=== PATIENT | female | born 2005 | race Caucasian/White ===

== ENCOUNTER 2025-03-17 19:27 | Emergency (ER) | payer MEDICAID ==
[~2025-03-17] VITALS: Ht 154.9 cm; Wt 54.4 kg
[2025-03-17 19:50] VITALS: O2SAT 99
[2025-03-17 19:57] VITALS: BP 120/78; PULSE 74; RESP 16; TEMP 36.8; O2SAT 99
[2025-03-17 20:23] LABS: CLARITY URINE CLEAR (CLEAR); COLOR URINE DARK YELLOW (YELLOW); GLUCOSE URINE NEGATIVE (NEGATIVE); KETONES URINE TRACE (NEGATIVE); LEUKOCYTE ESTERASE URINE 2+ (NEGATIVE); NITRITE URINE NEGATIVE (NEGATIVE); OCCULT BLOOD URINE 1+ (NEGATIVE); PH URINE 6.5 (4.5-8.0); PROTEIN URINE NEGATIVE (NEGATIVE); SPECIFIC GRAVITY URINE 1.019 (1.005-1.030); UROBILINOGEN URINE 1.0 E.U./dL (0.2-1.0)
[2025-03-17 20:55] LABS: SQUAMOUS EPITHELIAL CELL URINE 2+ /lpf (RARE/1+)
[2025-03-17 20:56] LABS: WBC URINE 25-50 /hpf (0-2)
[2025-03-17 20:57] LABS: BACTERIA URINE 2+
[2025-03-17] MEDS ORDERED: CEPH500T MT (22:12)
[2025-03-17] MEDS: CEFTRIAXONE SODIUM 1G VIAL IM ONE (22:24)
== END 2025-03-17 22:30 | disposition home or self-care (01) ==
LOC: ER 19:33
DX: J06.9 Acute upper respiratory infection, unspecified (principal); N12 Tubulo-interstitial nephritis, not specified as acute or chronic
CPT/HCPCS: 81003; 81025; 87086; 96372; 99283; J0696; Z7610 ×2

== ENCOUNTER 2025-03-21 20:28 | Emergency (ER) | payer MEDICAID ==
[~2025-03-21] VITALS: Ht 162.6 cm; Wt 54.0 kg
[~2025-03-21 20:28] MED LIST: CEPH500T MT
[2025-03-21 20:36] VITALS: O2SAT 99
[2025-03-21 21:47] LABS: BASOPHILS % 0.3 % (0.0-2.0); EOSINOPHILS % 3.7 % (0.0-5.0); HEMATOCRIT. 36.0 % (36.0-48.0); HEMOGLOBIN. 12.0 g/dL (12.0-16.0); LYMPHOCYTES % 41.4 % (20.0-50.0); MEAN PLATELET VOLUME 8.4 fl (7.4-10.4); MONOCYTES % 10.7 % (2.0-8.0); NEUTROPHILS % 43.9 % (40.0-76.0); PLATELET 339 x1000/uL (130-400); RED BLOOD CELL COUNT 3.70 mill/uL (4.2-5.4); RED CELL DISTRIBUTION WIDTH 15.4 % (11.6-14.6)
[2025-03-21 22:02] LABS: CREATININE 0.7 mg/dL (0.6-1.0); UREA NITROGEN BLOOD 12 mg/dL (9-23)
[2025-03-21 22:03] LABS: B-HCG QUANTITATIVE 20 mIU/mL (<6)
[2025-03-22] MEDS ORDERED: P50 MT (00:21)
[2025-03-22 00:41] VITALS: BP 106/56; PULSE 57; RESP 20; TEMP 36.8; O2SAT 100
== END 2025-03-22 00:43 | disposition home or self-care (01) ==
LOC: ER 20:28
DX: O36.80X0 Pregnancy with inconclusive fetal viability, not applicable or unspecified (principal); R10.20 Pelvic and perineal pain unspecified side; Z3A.00 Weeks of gestation of pregnancy not specified
CPT/HCPCS: 36415; 76801; 80048; 84702; 85025; 86850; 86900; 99284